=== PATIENT | female | born 1960 | race Caucasian/White ===

== ENCOUNTER 2016-06-24 16:20 | Emergency (ER) | payer OTHER ==
[2016-06-24 16:35] VITALS: RESP 16; TEMP 97.1
--- NOTE | 2016-06-24 16:35 | PDOC ---
Sore Throat/Dental Pain HPI - General Chief Complaint: Nasal/Mouth Problem /Injury Stated Complaint: facial/dental pain, nausea Date Seen by Provider: 06/24/16 Time Seen by Provider: 16:30 Source: POSITIVE: Patient Exam Limitations: POSITIVE: No limitations Nurse's Notes Reviewed & Considered: Yes - History of Present Illness Initial Comments: The patient is a 55-year-old female who presents to the emergency department with worsening dental pain. She states that approximately 2 weeks ago she had the remainder of her lower teeth pulled in preparation for denture. She states that she wore her denture for a week after her teeth were extracted as recommended per the dentist. She was having a lot of problems with irritation from the denture and it caused several small lacerations to the gum line. She was seen for follow-up last week. She is continued to have problems with the denture and over the past 2-3 days has noticed increased right sided facial pain and swelling. She has had some subjective fevers at home. She denies difficulty swallowing however has had some nausea secondary to the pain. She has been taking 10 mg hydrocodone as well as morphine at home for pain without much relief. She apparently is intolerant of NSAIDs. - Patient Home Medications Home Medications: Home Medications Meloxicam [Mobic] 15 mg PO BID 04/05/15 Diazepam [Valium] 20 mg PO DAILY 10/25/15 Hydrocodone/Acetaminophen [[place] 10-325 Tablet] 1 tab PO 5XD tab 01/07/16 Atorvastatin Calcium 1 tab PO QHS #30 tab 01/13/16 Albuterol Sulfate [Proair Hfa] 1 - 2 puff INH Q4-6H #1 puff 02/09/16 Fluticasone/Vilanterol [Breo Ellipta 100-25 Mcg Inh] 1 puff INH DAILY #1 puff Chlorthalidone 1 tab PO DAILY #30 tab 06/14/16 Clindamycin HCl [Cleocin HCl] 300 mg PO TID #21 capsule 06/24/16 - Patient Allergies Allergies/Adverse Reactions: Allergies Allergy/AdvReac Type Severity Reaction Status Date / Time Penicillins Allergy Intermediate Anaphylaxis Verified 06/24/16 16:27 Sulfa (Sulfonamide Allergy Intermediate NAUSEA Verified 06/24/16 16:27 Antibiotics) cephalexin monohydrate Allergy Mild ITCHING Verified 06/24/16 16:27 [From Keflex] gold Au 198 Allergy Mild RASH Verified 06/24/16 16:27 ibuprofen [Ibuprofen] Allergy HIVES Verified 06/24/16 16:27 Past Medical History - heen HEENT History: Denies History Cardiovascular History: Hypertension, Hyperlipidemia Respiratory History: Other (please comment) Additional Respiratory History: Chronic tobacco abuse Gastrointestinal History: Denies History Genitourinary History: Denies History Additional Genitourinary History: . Endocrine History: Other (please comment) Additional Endocrine History: FRONT LOBES OF THYROID REMOVED. Musculoskeletal History: Other (please comment) Prosthesis or Implant: Yes Additional Musculoskeletal History: silva rods, carpel tunnel Neurological History: Denies History Blood Disorders: Denies History Psychiatric History: Depression, Anxiety Disorders History of Sexually Transmitted Diseases: No Cancer History: Denies History History of MDRO: No History of Other Communicable Diseases: No Alcohol Use: None Substance Use Type: None Previous Surgical History: Yes Type / Date of Surgery: facial reconstruction, thyroid, tubal, CARPAL TUNNEL, SILVA STEVE PLACED IN BACK, CYSTS IN HAND, RIGHT SHOULDER SURGERY Anesthesia Reactions: No Malignant Hyperthermia: No Significant Family History: Heart disease, Cancer, Diabetes Past Medical History Reviewed: Reviewed - No Changes ROS - Limitations ROS Limitations: No Limitations Constitution: REPORTS: Chills (Subjective), Fever (Subjective) Cardiovascular: REPORTS: Denies Cardiac Symptoms Respiratory: REPORTS: Denies Resp Symptoms Neurological: REPORTS: Denies Neuro Symptoms Gastrointestinal: REPORTS: Nausea. DENIES: Vomitting Sore Throat/Dental Pain Exam - General Appearance General Appearance: REPORTS: Alert, Cooperative, No Acute Distress - HEENT Head / Face: POSITIVE: No Facial Swelling (No visible facial swelling) Eyes: POSITIVE: Inspection Normal Ears: POSITIVE: Ears Normal Inspection Nose: POSITIVE: Inspection Normal Oropharynx: POSITIVE: Other (Examination of her mouth reveals lower teeth which have been pulled primarily incisors, there is erythema and some swelling noted to the gum line at the base of where these teeth were pulled) Neck: POSITIVE: Supple - Respiratory Respiratory: REPORTS: No Respiratory Distress, Breath Sounds Normal - Cardiovascular Cardiovascular: REPORTS: Regular Rate and Rhythm, Heart Sounds Normal Sore Throat/Dental Progress - Patient's Progress MDM / ED Course: The patient was started on clindamycin 3 mg 3 times a day for treatment of infection. She is currently on fairly large doses of narcotics already and she was advised to continue this as needed for pain. She is advised return to the emergency room if she develops increased pain or swelling, fever, increased difficulty swallowing, any worsening or change in symptoms. She will contact her dentist on Sunday to arrange follow-up. - Consult Counseled: POSITIVE: Patient, RE: DX, RE: Need for F/U Patient Care Time - Estimated PCT Patient Care Time (In Minutes): 10 Vital Signs - Recent Vital Signs Vital Signs: Vital Signs (Last 8 hours) Temp Pulse Resp BP Pulse Ox 06/24/16 16:29 97.1 F 81 16 131/88 93 - VS Reviewed Vital Signs Reviewed: Yes Discharge Clinical Impression: Dental abscess Condition: Stable Prescriptions / Orders: Clindamycin HCl [Cleocin HCl] 300 mg PO TID #21 capsule Patient Instructions Given at Discharge: Dental Abscess (ED) Additional Instructions: Start clindamycin 300 mg 3 times a day for treatment of infection. Continue hydrocodone and morphine as needed for pain. Do not use lower denture until you follow up with the dentist. Return to the emergency room if increased pain or swelling, difficulty swallowing, any worsening or change in symptoms. Recommend dental follow-up, call on Sunday. Follow Up With: YVROSE DUMONT [Primary Care Provider] -
== END 2016-06-24 16:45 | disposition home or self-care (01) ==
LOC: ER 16:20
DX: K04.7 Periapical abscess without sinus (principal); K08.89 Other specified disorders of teeth and supporting structures
CPT/HCPCS: 99282

== ENCOUNTER 2016-10-28 12:28 | Emergency (ER) | payer OTHER ==
--- NOTE | 2016-10-28 12:33 | PDOC ---
Foot / Ankle Injury - General Chief Complaint: Lower Extremity Problem/Injury Stated Complaint: pain right 5 th toe Date Seen by Provider: 10/28/16 Time Seen by Provider: 12:30 Source: POSITIVE: Patient Exam Limitations: POSITIVE: No limitations - History of Present Illness Initial Comments: Ms Gale is a 56-year-old woman coming today with pain to her right pinky toe. Yesterday she accidentally kicked the vacuum lingo cleaner and has had pain and a little swelling to the base of that however since then. She still able to walk. She is taking quite a bit of medicines only for pain chronically including mobic and morphine and oxycodone, none of which appreciably helped with this toe pain. She denies any other injury to any other part of her body. Have you received a tetanus shot in the past 10 years?: Yes - Patient Allergies Allergies/Adverse Reactions: Allergies Allergy/AdvReac Type Severity Reaction Status Date / Time Penicillins Allergy Intermediate Anaphylaxis Verified 06/24/16 16:27 Sulfa (Sulfonamide Allergy Intermediate NAUSEA Verified 06/24/16 16:27 Antibiotics) cephalexin monohydrate Allergy Mild ITCHING Verified 06/24/16 16:27 [From Keflex] gold Au 198 Allergy Mild RASH Verified 06/24/16 16:27 ibuprofen [Ibuprofen] Allergy HIVES Verified 06/24/16 16:27 - Patient Home Medications Home Medications: Home Medications Meloxicam [Mobic] 15 mg PO BID 04/05/15 Diazepam [Valium] 20 mg PO DAILY 10/25/15 Hydrocodone/Acetaminophen [[place] 10-325 Tablet] 1 tab PO 5XD tab 01/07/16 Atorvastatin Calcium 1 tab PO QHS #30 tab 01/13/16 Chlorthalidone 1 tab PO DAILY #30 tab 09/14/16 Morphine Sulfate [Morphine Sulfate Er] 30 mg PO tab 09/29/16 Past Medical History - heen HEENT History: Denies History Cardiovascular History: Hypertension, Hyperlipidemia Respiratory History: Other (please comment) Additional Respiratory History: Chronic tobacco abuse Gastrointestinal History: Denies History Genitourinary History: Denies History Additional Genitourinary History: . Endocrine History: Other (please comment) Additional Endocrine History: FRONT LOBES OF THYROID REMOVED. Musculoskeletal History: Other (please comment) Prosthesis or Implant: Yes Additional Musculoskeletal History: silva rods, carpel tunnel Neurological History: Denies History Blood Disorders: Denies History Psychiatric History: Depression, Anxiety Disorders History of Sexually Transmitted Diseases: No Cancer History: Denies History History of MDRO: No History of Other Communicable Diseases: No Alcohol Use: None Substance Use Type: None Previous Surgical History: Yes Type / Date of Surgery: facial reconstruction, thyroid, tubal, CARPAL TUNNEL, SILVA STEVE PLACED IN BACK, CYSTS IN HAND, RIGHT SHOULDER SURGERY Anesthesia Reactions: No Malignant Hyperthermia: No Significant Family History: Heart disease, Cancer, Diabetes Past Medical History Reviewed: Reviewed - No Changes ROS - Limitations ROS Limitations: No Limitations Constitution: REPORTS: Denies Symptoms Cardiovascular: REPORTS: Denies Cardiac Symptoms Respiratory: REPORTS: Denies Resp Symptoms Neurological: REPORTS: Denies Neuro Symptoms Gastrointestinal: REPORTS: Denies GI Symptoms Endocrine: REPORTS: Denies Symptoms Musculoskeletal: REPORTS: Joint Pain ENT: REPORTS: Denies Symptoms Skin: REPORTS: Denies Skin Symptoms Foot / Ankle Exam - General Appearance General Appearance: POSITIVE: Alert, Cooperative, No Acute Distress - Extremities Foot: POSITIVE: Other (mild swelling and mild bruising to the base of the right pinky toe. She is able to wiggle it with no problem. no open wounds or abrasions) Ankle: POSITIVE: Normal Inspection, Non-Tender, Normal ROM, Stable Gait: POSITIVE: Normal Neuro: POSITIVE: Sensation Normal, Motor Normal Vascular: POSITIVE: No Vascular Compromise, Full Pulses Skin: POSITIVE: Warm, Dry - HEENT HEENT: POSITIVE: Head Inspection Nml, Eyes Inspection Nml - Neck / Back Neck / Back: Normal Inspection - Respiratory / CVS Respiratory / CVS: POSITIVE: Chest Non-Tender, No Respiratory Distress Peripheral Pulses: Dorsalis-pedis (R): 2+, Dorsalis-pedis (L): 2+ - Abdomen Abdomen: Soft: (All Quadrants), Denies Tenderness: (All Quadrants) Foot / Ankle Progress - Results Reviewed by me Xrays/CTs/US Reviewed by me: Yes Radiology Results: POSITIVE: Normal - Patient's Progress MDM / ED Course: Ms. Gale is a 56-year-old woman coming today with acute pain to her right pinky toe was no radiographic evidence of underlying osseous abnormality. We recommended ice, elevation, and a hard soled shoe and she verbalized understanding of her recommendations Patient Care Time - Estimated PCT Patient Care Time (In Minutes): 15 Vital Signs - Recent Vital Signs Vital Signs: Vital Signs (Last 8 hours) Temp Pulse Resp BP Pulse Ox 10/28/16 12:35 96.9 F 100 16 130/74 92 Discharge Clinical Impression: Toe pain Discharge Disposition: Discharged to Home Condition: Good Additional Instructions: The Xray showed no fracture or dislocation. Take your home medications for chronic pain. elevate your foot and use ice packs. Wear hard-soled shoes for the next 2 weeks to help give support to the toe. Follow Up With: JAYRO DE GUZMAN [Primary Care Provider] -
[2016-10-28 12:52] VITALS: RESP 16; TEMP 96.9
--- NOTE | 2016-10-29 21:53 | DI ---
XR FOOT COMPLETE MIN 3VW,10/28/2016 12:32 PM: Clinical History: Blunt trauma of the fifth digit Previous Exam: None at this facility. Findings: 3 views of the right foot are obtained, and demonstrate anatomic alignment without fractures. Degener ative changes are noted involving the tarsometatarsal joints. Hammertoe deformities are also seen. There is a hallux valgus deformity involving the right first metatarsophalangeal joint. Impression: No fracture. Diffuse degenerative changes of the foot.
== END 2016-10-28 13:05 | disposition home or self-care (01) ==
LOC: ER 12:28
DX: M79.674 Pain in right toe(s) (principal); W22.8XXA Striking against or struck by other objects, initial encounter
CPT/HCPCS: 73630; 99282